=== PATIENT | female | born 1970 | race Hispanic/Latino ===

== ENCOUNTER 2021-09-21 00:54 | Emergency (ER) | payer OTHER ==
[2021-09-21] MEDS ORDERED: MORPHINE 2 MG/1 ML INJ IV ONE (03:43)
--- NOTE | 2021-09-21 03:49 | Emergency Department Report ---
ED General Adult HPI - General Chief complaint: Extremity Injury, Lower Stated complaint: PAIN BILATERAL LOWER EXTREMITIES Time Seen by Provider: 09/21/21 01:24 Source: patient, EMS Mode of arrival: Stretcher Limitations: No Limitations - History of Present Illness Initial comments: 50-year-old female brought in by EMS with bilateral leg pain associated with redness and swelling has been going on for about 2 days progressively getting worse. Patient was diagnosed with pulmonary embolism about a month ago and was started on Eliquis blood thinner. Patient denies any trauma or fall. No fever or chills reported. Patient rated the pain as 8/10 in severity. Patient denies any shortness of breath, chest pain or palpitation. No other modifying or associated factors reported. Severity scale (0 -10): 0 - Related Data Previous Rx's Medication Instructions Recorded Last Taken Type Clindamycin [Clindamycin CAP] 300 mg PO Q8HR 10 Days #60 capsule 09/21/21 Unknown Rx NS Ketorolac [Toradol] 10 mg PO Q6H PRN 5 Days #20 tab NS 09/21/21 Unknown Rx Allergies Allergy/AdvReac Type Severity Reaction Status Date / Time No Known Allergies Allergy Verified 09/21/21 01:26 ED Review of Systems ROS: Stated complaint: PAIN BILATERAL LOWER EXTREMITIES Other details as noted in HPI Comment: All other systems reviewed and negative Musculoskeletal: myalgia Skin: rash, other (Erythema) ED Past Medical Hx - Medications Home Medications: Home Medications Medication Instructions Recorded Confirmed Last Taken Type Clindamycin [Clindamycin CAP] 300 mg PO Q8HR 10 Days #60 capsule 09/21/21 Unknown Rx NS Ketorolac [Toradol] 10 mg PO Q6H PRN 5 Days #20 tab NS 09/21/21 Unknown Rx ED Physical Exam - General Limitations: No Limitations General appearance: alert, in no apparent distress - Head Head exam: Present: normal inspection - Eye Eye exam: Present: normal appearance Pupils: Present: normal accommodation - ENT ENT exam: Present: normal exam, normal orophraynx, mucous membranes moist - Neck Neck exam: Present: normal inspection, full ROM. Absent: tenderness - Respiratory Respiratory exam: Present: normal lung sounds bilaterally. Absent: respiratory distress, accessory muscle use - Cardiovascular Cardiovascular Exam: Present: regular rate, normal rhythm, normal heart sounds - GI/Abdominal GI/Abdominal exam: Present: soft. Absent: distended, tenderness - Extremities Exam Extremities exam: Present: tenderness, normal capillary refill, pedal edema, other (Noted with bilateral lower leg blanchable erythema with tenderness consistent with cellulitis) - Back Exam Back exam: Absent: tenderness - Neurological Exam Neurological exam: Present: alert, oriented X3 - Psychiatric Psychiatric exam: Present: normal affect, normal mood ED Course Vital Signs 09/21/21 09/21/21 09/21/21 02:11 02:15 02:31 Temperature 97.7 F Pulse Rate 83 Respiratory 15 Rate Blood Pressure 124/58 128/69 Blood Pressure 124/58 [Left] O2 Sat by Pulse 99 98 99 Oximetry 09/21/21 09/21/21 09/21/21 02:45 03:01 03:15 Temperature Pulse Rate Respiratory Rate Blood Pressure 128/69 127/75 110/52 Blood Pressure [Left] O2 Sat by Pulse 99 97 97 Oximetry 09/21/21 09/21/21 03:31 03:45 Temperature Pulse Rate Respiratory Rate Blood Pressure 124/58 124/58 Blood Pressure [Left] O2 Sat by Pulse 97 98 Oximetry - Reevaluation(s) Reevaluation #1: 09/21/21 03:47 Here with bilateral lower leg extensive redness associated with swelling and pain and noted with bilateral lower leg blanchable erythema with tenderness consistent with cellulitis--we will go ahead and draw routine CBC, CMP, and start antibiotics clindamycin after blood culture is drawn. Given morphine 2 mg IV for symptomatic pain relief. Reevaluation #2: 09/21/21 05:17 noted with normal wbc with no other sign of systemic infection-- will have patient discharged back to her facility with prescription for Clindamycin and toradol and close follow up with her PCP in the next 3-5 days. ED Medical Decision Making - Lab Data Result diagrams: 09/21/21 04:07 09/21/21 04:07 Critical care attestation.: If time is entered above; I have spent that time in minutes in the direct care of this critically ill patient, excluding procedure time. ED Disposition Clinical Impression: Bilateral cellulitis of lower leg, Venous stasis dermatitis of both lower extremities Disposition: HOME / SELF CARE / HOMELESS Is pt being admited?: No Does the pt Need Aspirin: No Condition: Stable Instructions: Cellulitis, Adult, [id number], Chronic Venous Insufficiency, Stasis Dermatitis Additional Instructions: Take and complete your antibiotics as prescribed to help your symptoms Elevated your lower leg above your buttocks while sitting or lying down to help your circulation Call and follow up with your doctor in 3-5 days for progress Prescriptions: Clindamycin [Clindamycin CAP] 300 mg PO Q8HR 10 Days #60 capsule NS Ketorolac [Toradol] 10 mg PO Q6H PRN 5 Days #20 tab NS PRN Reason: Pain Referrals: PRIMARY CARE, [Primary Care Provider] - 3-5 Days
[2021-09-21 04:21] LABS: Basophils % (Auto) 0.8 % (0.0-1.8); Eosinophils # (Auto) 0.2 K/mm3 (0.0-0.4); Eosinophils % (Auto) 4.8 % (0.0-4.3); Hematocrit 34.8 % (30.3-42.9); Hemoglobin 10.9 gm/dl (10.1-14.3); Lymphocytes # (Auto) 1.8 K/mm3 (1.2-5.4); Lymphocytes % (Auto) 35.7 % (13.4-35.0); Mean Corpuscular HGB Conc 32 % (30-34); Mean Corpuscular Volume 77 fl (79-97); Monocytes # (Auto) 0.4 K/mm3 (0.0-0.8); Monocytes % (Auto) 8.1 % (0.0-7.3); Platelet Count 358 K/mm3 (140-440); Red Blood Count 4.51 M/mm3 (3.65-5.03); Red Cell Distribution Width 18.5 % (13.2-15.2)
[2021-09-21 04:45] LABS: Alanine Aminotransferase 29 units/L (7-56); Albumin 3.9 g/dL (3.9-5); Blood Urea Nitrogen 15 mg/dL (7-17); Calcium 8.8 mg/dL (8.4-10.2); Hemolysis Index 4
[2021-09-21 04:46] LABS: BUN/Creatinine Ratio 21
[2021-09-21 05:45] VITALS: BP 116/77
== END 2021-09-21 07:51 | disposition home or self-care (01) ==
LOC: ED 00:54
DX: L03.116 Cellulitis of left lower limb (principal); L03.115 Cellulitis of right lower limb; I87.332 Chronic venous hypertension (idiopathic) with ulcer and inflammation of left lower extremity
CPT/HCPCS: 36415; 80053; 82140; 85025; 87040; 96365; 96375; 99284; J2270; J7502